=== PATIENT | female | born 1980 | race Two or more races ===

== ENCOUNTER 2020-09-11 08:41 | Emergency (ER) | payer SELFPAY ==
[~2020-09-11] VITALS: Ht 162.6 cm; Wt 65.8 kg
--- NOTE | 2020-09-11 09:05 | NUR ---
ED Nurse Note: Pt BIbA for OD on mushrooms. Pt is a&ox1, nods her head yes and no to questions, and occasionally speaks verbally. She is awake, restless, disheveled. VSS. She is set up on monitor. IV established, blood sent to lab. Urine sent.
[2020-09-11 09:08] VITALS: BP 100/64
[2020-09-11 09:30] LABS: APPEARANCE,URINE CLEAR; BILIRUBIN, URINE NEGATIVE (NEGATIVE); COLOR,URINE PALE YELLOW; GLUCOSE, URINE (UA) NEGATIVE (NEGATIVE); KETONES,URINE NEGATIVE (NEGATIVE); LEUKOCYTE ESTERASE ,URINE 2+ (NEGATIVE); NITRITE,URINE NEGATIVE (NEGATIVE); PH,URINE 6.5 (4.5-8.0); PROTEIN,URINE NEGATIVE (NEGATIVE); UROBILINOGEN,URINE 1 MG/DL (0.0-1.0)
[2020-09-11 09:34] LABS: BASOPHILS % (AUTO) 1.6 % (0.0-2.0); EOSINOPHILS % (AUTO) 1.1 % (0.0-3.0); HEMATOCRIT 40.6 % (37.0-47.0); HEMOGLOBIN 13.7 G/DL (12.0-16.0); LYMPHOCYTES % (AUTO) 27.3 % (20.0-45.0); MEAN CORPUSCULAR VOLUME 93 FL (80-99); MONOCYTES % (AUTO) 8.6 % (1.0-10.0); NEUTROPHILS % (AUTO) 61.4 % (45.0-75.0); PLATELET COUNT 322 K/UL (150-450); RED BLOOD COUNT 4.38 M/UL (4.20-5.40); RED CELL DISTRIBUTION WIDTH 12.8 % (11.6-14.8); WHITE BLOOD COUNT 5.5 K/UL (4.8-10.8)
[2020-09-11 09:40] LABS: ANION GAP 7 mmol/L (5-15); BLOOD UREA NITROGEN 7 mg/dL (7-18); CALCIUM 9.1 MG/DL (8.5-10.1); CARBON DIOXIDE 27 MMOL/L (21-32); CHLORIDE 105 MMOL/L (98-107); CREATININE 0.7 MG/DL (0.55-1.30); POTASSIUM 3.2 MMOL/L (3.5-5.1); SODIUM 139 MMOL/L (136-145)
[2020-09-11 09:44] LABS: ALANINE AMINOTRANSFERASE 19 U/L (12-78); ALBUMIN 3.7 G/DL (3.4-5.0); ALBUMIN/GLOBULIN RATIO 0.9 (1.0-2.7); ALKALINE PHOSPHATASE 85 U/L (46-116); ASPARTATE AMINO TRANSFERASE 20 U/L (15-37); BILIRUBIN,TOTAL 0.7 MG/DL (0.2-1.0)
[2020-09-11] MEDS ORDERED: LORazepam Inj 2mg/ml 1ml ONE (10:09)
[2020-09-11] MEDS ORDERED: CEPHALEXIN500 MG ORAL (10:14)
--- NOTE | 2020-09-11 10:14 | Emergency Room Report ---
History of Present Illness General Chief Complaint: Substance Abuse Source: Patient, Medical Record Present Illness HPI 39-year-old female brought in by ambulance for agitations. She is GCS 15 upon arrival to the emergency department and endorses taking "sherms" to arrival. She has no other complaints. Denies headache, syncope, trauma, nausea, vomiting, Neck pain, rash, diarrhea, dysuria, hematuria, melena, hematochezia, back pain, saddle anesthesia, IV drug use or any other symptoms. The patient's symptoms were gradual onset, severity was moderate, duration since 1 day. Quality: Denies pain Past medical history: Drug abuse Past surgical history: Denies Smoking: ++ Alcohol use: Denies Drug use: ++ meth, marijuana, PCP Review of systems: CONST: No fevers or chills, No night sweats PULMONARY: No productive cough, No shortness of breath CARDIAC: No chest pain, No palpitations GI: No vomiting, No diarrhea , No melena_or_BRBPR : No dysuria, No hematuria, No discharge NEURO: No new_focal_weakness_or_numbness, No confusion, No vision changes 14 point Review of Systems is otherwise negative except per HPI Physical Exam: GENERAL: Awake_alert_ nontoxic, anxious appearing and continually sitting up and down in bed, pacing around room. Spo2 100% on RA -normal EYES: Extraocular muscles are intact. Conjunctivae clear. Lids without swelling. No nystagmus. ENT: External nose and ear normal_in_appearance. Oropharynx clear. Head_atraumatic, Moist_oral_mucosa NECK: No JVD. No meningismus. No thyromegaly. Supple. Trachea midline RESP: Normal respiratory effort. Symmetric rise. No stridor. Clear_to_auscultation_No_rales_No_wheezes CARDIAC: Regular rate and regular rhytm. No_significant pedal edema. ABDOMEN: Soft. Nondistended. Nontender_No_rebound_or_guarding. MSK: Normal muscle tone, without rigidity. Extremities without asymmetric deformity or swelling. SKIN: Warm and dry. No visible cyanosis or pallor. No petechiae NEUROLOGIC: Alert, oriented x3. Motor_and_sensation_grossly_intact. No truncal ataxia. Gait_normal Psych: Normal mood and affect, normal judgment and insight - COORDINATION OF CARE Case was discussed with: Patient Any labs and imaging that were ordered were interpreted as part of the medical decision making: Medical Decision Making/Plan: Differential diagnosis includes meth use, PCP use, marijuana use, anxiety attack, generalized anxiety disorder, stress reaction, psychosis, delusions, paranoid schizophrenia, drug abuse, drug intoxication, drug overdose, among others. The patient denies any suicide attempt, overdose, or ingestion. They exhibit no signs of any severe toxic syndrome or drug / alcohol withdrawal. The patient was observed for a period of time in the ED with serial exams. After serial exams in the emergency department, the patient remains sober and without any suicidal ideation, homicidal ideation or evidence of grave disability They have no focal neurologic deficits and were able to ambulate with a steady gait without assistance. UDS is positive for meth, in line with her statement she took "sherms" (PCP, meth, tobacco, marijuana) ED intervention included ativan with relief of symptoms. The patients presentation seems to be consistent with meth use without any evidence of dangerous arrhythmias on tele, thyrotoxicosis, metabolic / endocrinologic emergency, or indication for emergency psychiatric evaluation. Counseled patient on drug cessation. She verbalizes her understanding. She is clinically sober after serial reassessments. Pertinent results reviewed with the patient. I educated the patient on the current treatment plan including the risks, benefits, and alternatives. I also d iscussed the extent and limitations of the current evaluation. The patient expressed understanding and agreement with plan. I recommended PMD follow-up within 1-2 days. Also advised that the patient return to the Emergency Department as soon as possible if they experience any new, persistent, or worsening symptoms. A [employer] consult was offered to the patient prior to discharge but the patient declined. All needs were met during this ED visit including food and water, change of clothes, senior care referral/resources, and transportation. Allergies: Coded Allergies: No Known Allergies (Unverified , 09/11/20) COVID-19 Screening Contact w/high risk pt: No Experienced COVID-19 symptoms?: No COVID-19 Testing performed DOMAIN ARCHITECT: No Nursing Documentation-PM Past Medical History: No History, Except For Hx Diabetes: Yes Physical Exam Vital Signs Date Time Temp Pulse Resp B/P (MAP) Pulse Ox O2 Delivery O2 Flow Rate FiO2 09/11/20 08:38 97.9 72 16 120/79 (93) 98 Room Air 09/11/20 09:08 100 Sp02 EP Interpretation: reviewed, normal Medical Decision Making Diagnostic Impression: Primary Impression: Methamphetamine abuse Additional Impressions: Hypokalemia UTI (urinary tract infection) Substance abuse EKG Diagnostic Results Troponin ordered: No Rhythm Strip Diag. Results Rhythm Strip Time: 10:13 EP Interpretation: yes Rate: 77 Rhythm: NSR, no PVC's, no ectopy Reevaluation Time: 12:17 Last Vital Signs Date Time Temp Pulse Resp B/P (MAP) Pulse Ox O2 Delivery O2 Flow Rate FiO2 09/11/20 09:08 84 28 Room Air 100 09/11/20 09:08 97.9 100/64 100 Status: improved Disposition: HOME, SELF-CARE Admit Decision Time: 14:00 Condition: Stable Scripts Cephalexin* (KEFLEX*) 500 Mg Capsule 500 MG ORAL EVERY 12 HOURS, #14 CAP 0 Refills Prov: KoenigAlondra D.O. 09/11/20 Patient Instructions: Stimulant Use Disorder-Methamphetamines, Substance Use Disorder, Urinary Tract Infection, [id number] Additional Instructions: Instructions for patient/script manager: Follow up with your physician in 1-2 days. Stop doing drugs. They are dangerous and bad for your health. Follow-up with your doctor sooner if your condition requires a more timely clinical reevaluation. Return to the emergency department immediately if you feel that your condition is worsening or if you have any new or concerning symptoms. Review your discharge instructions and take any prescriptions given as instructed. [facility] PROVIDES FREE OR LOW-COST HEALTH SERVICES TO PEOPLE WHO CAN SHOW PROOF THAT THEY LIVE IN [facility]. TO FIND MORE CLINICS PARTNERED WITH THE [facility] TO PROVIDE SERVICE, PLEASE CALL . You had a urine culture done to evaluate for specific types of bacteria associated with your urinary infection. You were given an antibiotic that should treat most bacteria that usually occur with a urinary infection, but there is always the possibility of antibiotic resistance. You will receive a telephone call if it is positive. If you do not receive a call, they are likely negative, but you should return to medical records to get your results to be sure, or have your primary doctor obtain them from our hospital, and especially if you are having persistent symptoms. If you are having persistent symptoms and are not able to get a hold of your culture results or your regular doctor you should return to the ER for a reevaluation. Alondra Koenig D.O. Sep 11, 2020 10:14
[2020-09-11] MEDS ORDERED: Azithromycin 500 MG in NS 275 ML IV ONE (10:15)
[2020-09-11] MEDS ORDERED: cefTRIAXone 1 GM in NS 55 ML IVPB ONE (10:15)
[2020-09-11] MEDS ORDERED: LORazepam Inj 2mg/ml 1ml IV ONE ×2 (10:15→10:45)
[2020-09-11 11:05] VITALS: BP 113/67
--- NOTE | 2020-09-11 12:00 | NUR ---
ED Nurse Note: Pt lying in bed, restless. ERMD aware.
[2020-09-11 13:00] VITALS: BP_SYST 111; BP_SYST 113; BP_DIAS 69; BP_DIAS 70
--- NOTE | 2020-09-11 13:00 | NUR ---
ER DISCHARGE NOTE: Patient is cleared to be discharged per ERMD, pt is aox4, on room air, with stable vital signs. pt was given dc and prescription instructions, pt was able to verbalize understanding, pt id band and iv site removed without complications. pt is able to ambulate with steady gait. pt took all belongings. Homeless log and mini cog completed. Resources provided, food and clothes provided. Pt refused to wait to have precription filled out by hospital.
== END 2020-09-11 13:00 | disposition home or self-care (01) ==
LOC: EDBD 08:41 → EMR 12:50
DX: F15.10 Other stimulant abuse, uncomplicated (principal); N39.0 Urinary tract infection, site not specified; E87.6 Hypokalemia; E11.9 Type 2 diabetes mellitus without complications
CPT/HCPCS: 36415; 80053; 80307; 81003; 81025; 84702; 85025; 96361; 96365; 96367; 96375; 96376; 99284; G0480; J0456; J0696; J7030; J7050; J8499